=== PATIENT | male | born 1970 | race Caucasian/White ===

== ENCOUNTER 2017-08-11 16:54 | Emergency (ER) | payer MEDICARE, OTHER ==
[~2017-08-11] VITALS: Ht 172.7 cm; Wt 100.7 kg
--- NOTE | 2017-08-11 17:15 | NUR ---
BIB [facility],HEARING VOICES TELLING HIM HE IS A FAGOT. WITH PLANS OF HANGING HIMSELF. VSS. NOTED CALM AND COOPERATIVE. SAFETY AND COMFORT MEASURES PROVIDED. WILL MONITOR.
[2017-08-11] MEDS ORDERED: ARIP30TA PO (17:20)
[2017-08-11] MEDS ORDERED: CYCL-343 PO (17:20)
[2017-08-11] MEDS ORDERED: BUPR100T13 PO (17:20)
[2017-08-11] MEDS ORDERED: ATOR10TA PO (17:20)
--- NOTE | 2017-08-11 17:30 | NUR ---
ESPERANZA MCCAULEY AT FOR BLOOD DRAW.
[2017-08-11 17:38] LABS: BASOPHILS # (AUTO) 0.1 /CMM (0.0-0.2); BASOPHILS % (AUTO) 0.7 % (0.0-2.0); EOSINOPHILS # (AUTO) 0.1 /CMM (0.0-0.7); EOSINOPHILS % (AUTO) 0.7 % (0.0-6.0); HEMATOCRIT 50 % (39-51); HEMOGLOBIN 16.8 g/dL (13.5-17.5); LYMPHOCYTES # (AUTO) 2.6 /CMM (0.8-4.8); LYMPHOCYTES % (AUTO) 24.2 % (20.0-44.0); MEAN CORPUSCULAR HEMOGLOBIN 32 PG (26.0-33.0); MEAN CORPUSCULAR HGB CONC 34 g/dl (31.0-36.0); MEAN CORPUSCULAR VOLUME 95 fL (80-96); MONOCYTES # (AUTO) 0.9 /CMM (0.1-1.30); MONOCYTES % (AUTO) 8.3 % (2.0-12.0); NEUTROPHILS # (AUTO) 7.2 /CMM (1.8-8.9); NEUTROPHILS % (AUTO) 66.1 % (43.0-81.0); PLATELET COUNT (AUTO) 246 /CMM (150-450); RDW COEFFICIENT OF VARIATION 13.9 (11.5-15.0); RED BLOOD CELL COUNT(AUTO) 5.25 MIL/uL (4.5-6.0); WHITE BLOOD COUNT (AUTO) 10.9 K/uL (4.3-11.0)
[2017-08-11 17:58] LABS: ACETAMINOPHEN < 2 ug/ml (10-30); ALANINE AMINOTRANSFERASE 87 U/L (12-78); ALBUMIN 3.8 g/dL (3.4-5.0); ALCOHOL, BLOOD < 3 mg/dL (0-0); ALKALINE PHOSPHATASE 67 U/L (46-116); ASPARTATE AMINOTRANSFERASE 39 U/L (15-37); BILIRUBIN,DIRECT 0.1 mg/dL (0.0-0.2); BILIRUBIN,TOTAL 0.4 mg/dL (0.2-1.0); CALCIUM, SERUM 8.7 mg/dL (8.5-10.1); CARBON DIOXIDE 28 mmol/L (21-32); CHLORIDE 103 mmol/L (98-107); CREATININE 1.1 mg/dL (0.6-1.3); GLUCOSE 126 mg/dL (74-106); SALICYLATE 0.5 mg/dL (2.8-20.0); SODIUM SERUM 136 mmol/L (136-145); TOTAL PROTEIN, SERUM 7.4 g/dL (6.4-8.2); UREA NITROGEN, BLOOD 18 mg/dL (7-18)
[2017-08-11 17:59] LABS: VALPROIC ACID 80 ug/mL (50-100)
[2017-08-11 18:40] VITALS: BP 141/76
--- NOTE | 2017-08-11 19:15 | NUR ---
JACKELINE HAYWOOD AT FOR EVAL.
[2017-08-11 19:37] LABS: APPEARANCE,URINE Clear (CLEAR); BILIRUBIN,URINE Negative (NEGATIVE); BLOOD, URINE Trace-intact Ery/uL (NEGATIVE); COLOR,URINE Yellow (YELLOW); KETONES,URINE 15 (NEGATIVE); LEUKOCYTE ESTERASE ,URINE Negative (NEGATIVE); NITRITE, URINE Negative (NEGATIVE); PH,URINE 6.5 (5.0-8.0); PROTEIN,URINE Trace mg/dl (NEGATIVE); UGLUCOSE Negative (NEGATIVE); UROBILINOGEN,URINE 0.2 EU/dL (0.2)
[2017-08-11 19:47] LABS: BACTERIA,URINE Few /HPF (None Seen); SQUAMOUS EPITHELIAL CELL,UR Few /HPF (None Seen); WBC,URINE 0-2 /HPF (0-3)
--- NOTE | 2017-08-11 20:39 | NUR ---
nolan at bedside for transport.
== END 2017-08-11 21:28 ==
LOC: ER 16:56
DX: R45.851 Suicidal ideations (principal); F20.9 Schizophrenia, unspecified; I10 Essential (primary) hypertension; F31.9 Bipolar disorder, unspecified; F12.10 Cannabis abuse, uncomplicated
CPT/HCPCS: 36415; 80048; 80076; 80164; 80305; 80329; 81001; 85025; 99285; A4606; G0480 ×2; 81000-TC; Z7610